=== PATIENT | male | born 1975 | race Hispanic/Latino ===

== ENCOUNTER 2024-04-05 23:14 | Emergency (ER) | payer BC ==
[~2024-04-05] VITALS: Ht 175.3 cm; Wt 140.6 kg
[2024-04-05 23:36] LABS: GLUCOSE POC COMMENT Notified Nurse
[2024-04-05 23:49] LABS: CREATININE 0.9 mg/dL (0.5-1.3); POTASSIUM 3.8 mmol/L (3.5-5.1)
[2024-04-06 00:02] LABS: BASOPHILS # (AUTO) 0.04 K/uL (0.00-0.20); BASOPHILS % (AUTO) 0.4 % (0.0-5.0); EOSINOPHILS # (AUTO) 0.28 K/uL (0.00-0.70); EOSINOPHILS % (AUTO) 2.8 % (0.0-8.0); HEMATOCRIT 40.6 % (42-54); IMMATURE GRANULOCYTE ABSOLUTE 0.04 K/uL (0-1); LYMPHOCYTES # (AUTO) 3.4 K/uL (1.0-4.8); LYMPHOCYTES % (AUTO) 33.9 % (21.0-51.0); MEAN CORPUSCULAR HEMOGLOBIN 28.8 pg (27.0-33.0); MEAN CORPUSCULAR HGB CONC 33.5 g/dL (32.0-36.0); MEAN CORPUSCULAR VOLUME 85.8 fL (79-99); MONOCYTES # (AUTO) 0.6 K/uL (0.1-1.0); MONOCYTES % (AUTO) 5.8 % (3.0-13.0); NEUTROPHILS # (AUTO) 5.7 K/uL (1.8-7.7); NEUTROPHILS % (AUTO) 56.7 % (40.0-77.0); PLATELET COUNT (AUTO) 182 K/uL (130-400); RED BLOOD CELL COUNT(AUTO) 4.73 MIL/uL (4.50-6.20); RED CELL DISTRIBUTION WIDTH 13.3 % (11.0-15.5)
[2024-04-06 00:08] LABS: B-TYPE NATRIURETIC PEPTIDE 13 pg/mL (0-100)
[2024-04-06] MEDS: mecliZINE HCL 25 MG TABLET PO ONE (00:08)
[2024-04-06] MEDS: NITROGLYCERIN 1GM OINT 1 INCH/1GM TD ONE (00:09)
[2024-04-06] MEDS: 0.9%NACL 1000ML 1,000 ML IV ONE (00:47)
[2024-04-06] MEDS: ASPIRIN 325MG TAB PO ONE (00:47)
[2024-04-06 00:52] LABS: APPEARANCE,URINE CLEAR (CLEAR); BILIRUBIN,URINE NEGATIVE (NEGATIVE); COLOR,URINE LIGHT-YELLOW (YELLOW); GLUCOSE, URINE (UA) 50 mg/dL (NEGATIVE); KETONES,URINE NEGATIVE (NEGATIVE); LEUKOCYTE ESTERASE ,URINE NEGATIVE Leu/uL (NEGATIVE); NITRATE,URINE NEGATIVE (NEGATIVE); OCCULT BLOOD,URINE NEGATIVE (NEGATIVE); PROTEIN,URINE NEGATIVE (NEGATIVE); UROBILINOGEN,URINE 0.2 mg/dL (0.2-1.0)
[2024-04-06 00:58] LABS: ADD UA MICROSCOPIC YES
[2024-04-06 00:59] LABS: AMPHET/METH SCREEN,URINE NEGATIVE (NEGATIVE); BARBITURATE SCREEN, URINE NEGATIVE (NEGATIVE); BENZODIAZEPINES SCREEN,URINE NEGATIVE (NEGATIVE); CANNABINOID SCREEN,URINE NEGATIVE (NEGATIVE); COCAINE SCREEN,URINE NEGATIVE (NEGATIVE); OPIATE SCREEN,URINE NEGATIVE (NEGATIVE); PHENCYCLIDINE SCREEN,URINE NEGATIVE (NEGATIVE)
[2024-04-06 01:00] LABS: MUCUS,URINE RARE LPF (None Seen); RBC,URINE 0-1 /HPF (0-1); SQUAMOUS EPITHELIAL CELL,UR RARE /HPF (0-2); WBC,URINE 0-1 /HPF (0-1)
[2024-04-06] MEDS ORDERED: MECL-302 PO (02:03)
[2024-04-06 02:34] VITALS: BP 128/78; PULSE 75; RESP 18; TEMP 98.3; O2SAT 98
== END 2024-04-06 02:35 | disposition home or self-care (01) ==
LOC: EDH 23:14
DX: R07.89 Other chest pain (principal); R42 Dizziness and giddiness; D64.9 Anemia, unspecified; E11.65 Type 2 diabetes mellitus with hyperglycemia; E78.00 Pure hypercholesterolemia, unspecified; E87.1 Hypo-osmolality and hyponatremia; E87.8 Other disorders of electrolyte and fluid balance, not elsewhere classified; I10 Essential (primary) hypertension
CPT/HCPCS: 99284; 70450; 71045; 82550; 84484 ×3; 80048; 83880; 80305; 85025; 82948; 36415 ×2; 93005; 81001; J7030

== ENCOUNTER → 2024-04-15 | Outpatient (CLI) | payer BC ==
[~2024-04-15] MED LIST: MECL-302 PO
--- NOTE | 2024-04-15 18:38 | HMCSR ---
APPROVED REPORT Height: 5 ft 9in Weight: 305 lbs TEST INDICATIONS CHEST PAIN UNSPECIFIED RESTING DATA: The resting ekg shows: NSR STRESS DETAILS Reason for Termination: Reached target heart rate Stress Symptoms: SHORTNESS OF BREATH Max HR Achieved: 152 bpm % of APMHR Achieved: 104 Max Blood Pressure: 173/90 mmHg Exercise duration: 7 min Highest Stage Achieved: Stage 3: 3.4 mph at 14% grade. Stress ECG: NSR ST Change: Yes. Maximum ST Depression: 1 mm Angina Score during exercise: Exercise -Limiting Recovery ST Change: Yes - Horizontal ST depression Recovery Maximum ST Deviation: 0.5 mm Overall Exercise Capacity: Average
== END | disposition home or self-care (01) ==
LOC: RAH 07:40
PROVIDERS: ATTEND Internal Medicine
DX: R07.9 Chest pain, unspecified (principal)
CPT/HCPCS: 93017

== ENCOUNTER 2024-04-28 10:09 | Observation (INO) | payer BC ==
[~2024-04-28] VITALS: Ht 175.3 cm; Wt 60.8 kg
[2024-04-28 10:54] LABS: HEMATOCRIT 45.2 % (42-54); MEAN CORPUSCULAR HEMOGLOBIN 28.7 pg (27.0-33.0); MEAN CORPUSCULAR HGB CONC 32.7 g/dL (32.0-36.0); MEAN CORPUSCULAR VOLUME 87.6 fL (79-99); RED BLOOD CELL COUNT(AUTO) 5.16 MIL/uL (4.50-6.20); RED CELL DISTRIBUTION WIDTH 12.9 % (11.0-15.5); WHITE BLOOD COUNT (AUTO) 8.4 K/uL (4.8-10.8)
[2024-04-28 11:05] LABS: CREATININE 0.8 mg/dL (0.5-1.3); POTASSIUM 4.5 mmol/L (3.5-5.1)
[2024-04-28 11:09] LABS: BILIRUBIN,DIRECT 0.1 mg/dL (0.0-0.3); BILIRUBIN,TOTAL 0.5 mg/dL (0.2-1.0); TOTAL PROTEIN, SERUM 7.4 g/dL (6.0-8.3)
[2024-04-28] MEDS ORDERED: PHARMACY COMMUNICATION MISC SCH (11:30)
[2024-04-28] MEDS ORDERED: SIMV10TA97 PO (11:43)
[2024-04-28] MEDS ORDERED: VALS40TA11 PO (11:43)
[2024-04-28] MEDS ORDERED: HYDR12.54 PO (11:43)
[2024-04-28] MEDS ORDERED: AEC81 PO (11:43)
[2024-04-28] MEDS ORDERED: DULA1.5P SQ (11:43)
--- NOTE | 2024-04-28 11:45 | NUR ---
MED REC DONE AT THIS TIME.
[2024-04-28] MEDS: ENOXAPARIN SODIUM 100 MG/1 ML SQ SCH (12:10)
[2024-04-28] MEDS: ENOXAPARIN SODIUM 30 MG/0.3 ML SQ SCH (12:11)
--- NOTE | 2024-04-28 14:36 | NUR ---
PATIENT AT [facility] AT THIS TIME.
[2024-04-28] MEDS: REGADENOSON 0.4 MG/5 ML PF SYG IVP SCH (15:27)
--- NOTE | 2024-04-28 16:43 | NUR ---
PATIENT BACK FROM STRESS TEST AT THIS TIME.
--- NOTE | 2024-04-28 17:14 | NUR ---
ENDORSED CARE TO [facility] RN AT THIS TIME.
--- NOTE | 2024-04-28 18:22 | HMCSR ---
APPROVED REPORT TEST INDICATIONS Chest Pain, ABN TREASMILL STRESS TEST The imaging protocol used to acquire images was Rest Tc-99m/stress Tc-99m 1 day Consent: The procedure was explained and understood by the patient. Informerd consent was witnessed OLGA Banda First, low dose rest was performed then high dose stress. RESTING DATA: The resting ekg shows: NSR Rest SPECT myocardial perfusion imaging was performed in supine position minutes following the intra venous injection of 12 mCi of Tc-99 Sestamibi. Time of rest injection: 1330 Date: 04/28/2024 PHARMACOLOGIC STRESS: Pharmacologic stress test was performed by injecting regadenoson 0.4 mg IV push followed by the intra venous injection of 28 mCi of Tc-99 Sestamibi. Time of stress injection: 1521 Date: 04/28/2024 Heart Rate at time of stress injection: 77 bpm. The images were gated to evaluate regional wall motion and calculate left ventricular ejection fracti on. STRESS DETAILS Reason for Termination: Infusion complete Stress Symptoms: Dyspnea, [place] Max HR Achieved: 103 bpm % of APMHR Achieved: 70 Max Blood Pressure: 153/69 mmHg Stress ECG: NSR Study quality was good. Lung uptake was Normal. Artifact: increased GI uptake LEFT VENTRICLE Size: The left ventricular size is mildly dilated. Systolic Function:The left ventricular systolic function is normal. Wall Motion: No regional wall motion abnormalities noted. The left ventricular ejection fraction was calculated to be 53%.TID = 1.18. LV PERFUSION The stress images show normal perfusion. IMPRESSION Normal pharmacologic nuclear stress test. Global LV Function: Normal Stress ECG Summary: Normal LV Perfusion Summary: Normal Conclusion Normal pharmacologic nuclear stress test. Global LV Function: Normal Stress ECG Summary: Normal LV Perfusion Summary: Normal Transient ischemic dilatation ratio present which may be indicative of left main or multivessel disea se Clinical correlation recommended
[2024-04-28] MEDS ORDERED: METF-444 PO (22:56)
[2024-04-28] MEDS ORDERED: AUD NEB (22:56)
[2024-04-28] MEDS ORDERED: VALS80TA30 PO (22:56)
[2024-04-28] MEDS ORDERED: ALBU18HF7 IH (22:59)
[2024-04-28] MEDS ORDERED: ondanSETRON 4MG INJ IVP PRN (23:00)
[2024-04-28] MEDS ORDERED: ZOLPidem TARTrate 5 MG TAB PO PRN (23:00)
[2024-04-28] MEDS ORDERED: acetaMINOPHEN 325 MG TAB PO PRN (23:00)
[2024-04-28] MEDS ORDERED: NITROGLYCERIN 0.4 MG SL TAB SL PRN (23:00)
[2024-04-28 23:36] VITALS: BP 119/66; PULSE 70; RESP 19; TEMP 97.9
--- NOTE | 2024-04-28 23:38 | HP ---
HISTORY OF PRESENT ILLNESS: The patient is a direct admission from my office. He came complaining of mid sternal chest discomfort, pressure type radiated towards his left upper extremity that lasted for few hours started while at home address at 5 o'clock in the morning and lasted until 9 o'clock when he was seen in my office. The patient denies any palpitations, dizziness. No shortness of breath. The patient has had a recent treadmill stress test was reported abnormal. REVIEW OF SYSTEMS: Having no fever, chills, seizures, or loss of consciousness. No cough, wheeze, or rhonchi. No nausea, vomiting, or diarrhea. No dysuria, urgency, or frequency. No rashes, petechiae, or ecchymoses. No hallucinations, delusions. No suicidal ideation. PAST MEDICAL HISTORY: Type 2 diabetes, hypertension, dyslipidemia, COPD, sleep apnea, morbid obesity, BMI of 45. Abnormal treadmill stress test. PHYSICAL EXAMINATION: GENERAL: Currently, awake, alert, oriented in person, time and place. VITAL SIGNS: Blood pressure 130/76, pulse 78, and respiratory rate 16. HEENT: Normocephalic, atraumatic. LUNGS: Clear to auscultation. HEART: S1, S2 are distant. ABDOMEN: Soft, nontender, no masses. EXTREMITIES: No clubbing, cyanosis, no edema. LABORATORY DATA: Treadmill stress test report shows exercise duration of [address] changes , maximum ST depression [address] changes, horizontal ST depressions. This is from 04/15/2024. Today's EKG shows normal sinus rhythm, 73 per minute, no acute ST-T changes. ASSESSMENT AND PLAN: * Chest pain. The patient with an abnormal treadmill stress test and significant cardiovascular risk factors including type 2 diabetes, hypertension, dyslipidemia, morbid obesity will be admitted, started him on a standard treatment for acute coronary syndrome -- scheduled for a Lexiscan stress test. Reassess with results. * Type 2 diabetes, hypertension, and dyslipidemia. Continue home medications including hydrochlorothiazide, valsartan, simvastatin, metformin, and Trulicity. * Asthma/chronic obstructive pulmonary disease. Continue with albuterol inhaler. Reassess in a.m. with results of tests. DOS:04/28/2024 TID: [id number] RECEIPT: [id number] MTDD
[2024-04-29] VITALS (7 sets, daily range): BP systolic 118–147; BP diastolic 79–93; PULSE 64–84; RESP 16–20; TEMP 97.6–98.5; O2SAT 96–98
[2024-04-29 02:02] LABS: CREATININE 0.8 mg/dL (0.5-1.3); POTASSIUM 4.3 mmol/L (3.5-5.1)
[2024-04-29 08:02] LABS: HEMATOCRIT 42.5 % (42-54); MEAN CORPUSCULAR HEMOGLOBIN 28.8 pg (27.0-33.0); MEAN CORPUSCULAR HGB CONC 33.2 g/dL (32.0-36.0); MEAN CORPUSCULAR VOLUME 86.7 fL (79-99); RED BLOOD CELL COUNT(AUTO) 4.9 MIL/uL (4.50-6.20); RED CELL DISTRIBUTION WIDTH 13.1 % (11.0-15.5); WHITE BLOOD COUNT (AUTO) 10.6 K/uL (4.8-10.8)
[2024-04-29 08:28] LABS: ALANINE AMINOTRANSFERASE 33 U/L (12-78); ALBUMIN 3.6 g/dL (3.5-5.0); ASPARTATE AMINOTRANSFERASE 44 U/L (10-37); BILIRUBIN,DIRECT < 0.1 mg/dL (0.0-0.3); BILIRUBIN,TOTAL 0.6 mg/dL (0.2-1.0)
--- NOTE | 2024-04-29 08:34 | NUR ---
CARDIOLOGY: DR STANFORD CALLED-NO ANSWER
--- NOTE | 2024-04-29 08:39 | NUR ---
CARDIOLOGY CONSULT: PATIENT REPORT GIVEN TO DR STANFORD
[2024-04-29] MEDS: cloPIDOgrel 75MG TAB PO SCH (08:48)
[2024-04-29] MEDS: ASPIRIN 81MG CHEW TAB PO SCH (08:48)
[2024-04-29] MEDS: FAMOTIDINE 20MG TAB PO SCH (08:48)
--- NOTE | 2024-04-29 14:45 | NUR ---
Dr Evans notified pt in room 231
[2024-04-29] MEDS ORDERED: VALS40TA11 PO (17:36)
[2024-04-29] MEDS ORDERED: ALBUTEROL INHALER 90MCG/INH IH PRN (18:00)
--- NOTE | 2024-04-29 19:23 | CONS ---
CONSULT NOTE: CARDIOLOGY Reason for consult: Chest pain HPI/story at presentation: This is a pleasant 48-year-old male with past medical history as below presented for further evaluation management of abnormal stress test and ongoing issues with chest discomfort, radiating to left arm. No active issues of chest pain at this time, troponins negative. Cardiology is consulted for further evaluation and management. Subjective: 04/29/2024 no complaints Past medical history: See below Allergies, Meds See chart Review of systems Review of Systems Constitutional: Negative for chills and fever. HENT: Negative for ear discharge and ear pain. Eyes: Negative for photophobia and discharge. Respiratory: Negative for cough, sputum production and stridor. Cardiovascular: Negative for chest pain and palpitations. Gastrointestinal: Negative for diarrhea and vomiting. Genitourinary: Negative for frequency. Musculoskeletal: Negative for myalgias. Skin: Negative for rash. Neurological: Negative for focal weakness and seizures. Endo/Heme/Allergies: Negative for polydipsia. Psychiatric/Behavioral: Negative for hallucinations. Vitals see chart PHYSICAL EXAMINATION GENERAL: The patient is alert and oriented*3 HEENT: Nonicteric sclerae, non traumatic HEART: Regular rate and rhythm with no murmurs LUNGS: Clear to auscultation bilaterally ABDOMEN: No acute issues, non tender GENITAL, RECTAL: deferred SKIN: No rash NEUROLOGIC: NFND EXTREMITIES: No edema ASSESSMENT ATYPICAL CHEST PAIN With evidence of abnormal stress test with TID DIABETES HYPERTENSION DYSLIPIDEMIA, SLEEP APNEA, MORBID OBESITY CORE MEASURES On aspirin Plavix statin, 04/2024 OTHER MEDICAL PROBLEMS COPD, asthma PLAN 04/29/2024 patient with atypical symptoms, multiple risk factors presenting with abnormal stress test and chest discomfort. This benefits of cardiac catheterization discussed and patient wants to proceed. Multiple questions answered. N.p.o. at midnight for possible angiogram tomorrow. ATTESTATION I was involved substantially in the care of this patient Number and complexity of problems addressed: 1 acute illnesses with systemic features Amount and or complexity of data Review of prior external note(s) from each unique source: 2+ Ordering of each unique test : 0 Review of the result(s) of each unique test: 2+ Assessment requiring an independent historian(s): No Independent interpretation of test performed by another MD/QHCP/appropriate source (not separately reported) : No Discussion of management or test interpretation with external MD/QHCP/appropriate source (not separately reported) : No Risk status (cardiac, billing related): Moderate TYLER HOLDEN MD Apr 29, 2024 19:23
[2024-04-29] MEDS ORDERED: 0.9% NACL 500ML IV.SOLN 500 ML IV SCH (19:30)
[2024-04-29 19:41] LABS: HEMATOCRIT 43.1 % (42-54); MEAN CORPUSCULAR HEMOGLOBIN 28.6 pg (27.0-33.0); MEAN CORPUSCULAR HGB CONC 34.1 g/dL (32.0-36.0); MEAN CORPUSCULAR VOLUME 83.9 fL (79-99); RED BLOOD CELL COUNT(AUTO) 5.14 MIL/uL (4.50-6.20); RED CELL DISTRIBUTION WIDTH 12.8 % (11.0-15.5)
[2024-04-29 19:50] LABS: CREATININE 0.9 mg/dL (0.5-1.3); POTASSIUM 3.3 mmol/L (3.5-5.1)
[2024-04-29] MEDS: simVASTatin 10 MG TABLET PO SCH (20:24)
[2024-04-30] VITALS (8 sets, daily range): BP systolic 111–145; BP diastolic 62–97; PULSE 64–79; RESP 17–20; TEMP 97.7–98.6; O2SAT 98
--- NOTE | 2024-04-30 04:03 | PN ---
SUBJECTIVE: The patient was admitted for assessment and treatment of chest pain. History of recent abnormal treadmill stress test. He was started on standard treatment for acute coronary syndrome. He had a stress test done that was reported as abnormal. He is currently comfortable and afebrile. No chest pain or palpitations. No nausea, vomiting. OBJECTIVE: GENERAL: Currently, awake, alert, oriented in person, time, and place, not in distress. VITAL SIGNS: Blood pressure 127/96, pulse 74, respiratory rate 14. HEENT: Normocephalic and atraumatic. LUNGS: Clear to auscultation. HEART: S1, S2 are distant. ABDOMEN: Soft and nontender. EXTREMITIES: No clubbing, cyanosis. DIAGNOSTIC DATA; Lexiscan stress test report shows transient ischemic dilatation ratio present, which may indicative of left main or multivessel disease. TID equals 1.18. Global LV function normal. Stress EKG summary normal. Normal pharmacological nuclear stress. LABORATORY DATA: WBC count 10.6, hemoglobin 14.1, platelets 201. Sodium 137, potassium 4.3, creatinine 0.8, glucose 113. Troponin levels were less than 0.05. ASSESSMENT AND PLAN: * Chest pain with abnormal treadmill stress test with 1 mm depression reported and Lexiscan stress test compatible with left main or multivessel disease in a patient with typical symptoms at rest, high risk with type 2 diabetes, hypertension, dyslipidemia, and obesity. Cardiology consultation requested. * Hypertension. Continue home medications. * Dyslipidemia. Continue with simvastatin. * Chronic obstructive pulmonary disease. Continue current treatment. Follow up in a.m. with results. DOS: 04/29/2024 TID: [id number] RECEIPT: [id number] [facility]
[2024-04-30 08:15] LABS: BASOPHILS # (AUTO) 0.05 K/uL (0.00-0.20); BASOPHILS % (AUTO) 0.7 % (0.0-5.0); EOSINOPHILS # (AUTO) 0.13 K/uL (0.00-0.70); EOSINOPHILS % (AUTO) 1.8 % (0.0-8.0); HEMATOCRIT 44.1 % (42-54); IMMATURE GRANULOCYTE ABSOLUTE 0.02 K/uL (0-1); LYMPHOCYTES # (AUTO) 1.7 K/uL (1.0-4.8); LYMPHOCYTES % (AUTO) 23.1 % (21.0-51.0); MEAN CORPUSCULAR HEMOGLOBIN 28.8 pg (27.0-33.0); MEAN CORPUSCULAR HGB CONC 32.9 g/dL (32.0-36.0); MEAN CORPUSCULAR VOLUME 87.5 fL (79-99); MONOCYTES # (AUTO) 0.5 K/uL (0.1-1.0); MONOCYTES % (AUTO) 6.9 % (3.0-13.0); NEUTROPHILS # (AUTO) 4.9 K/uL (1.8-7.7); NEUTROPHILS % (AUTO) 67.2 % (40.0-77.0); PLATELET COUNT (AUTO) 191 K/uL (130-400); RED BLOOD CELL COUNT(AUTO) 5.04 MIL/uL (4.50-6.20); RED CELL DISTRIBUTION WIDTH 12.8 % (11.0-15.5); WHITE BLOOD COUNT (AUTO) 7.4 K/uL (4.8-10.8)
[2024-04-30 08:25] LABS: INR 1.01 (0.85-1.15); PROTHROMBIN TIME 10.9 SEC (9.6-11.6)
[2024-04-30 08:26] LABS: PARTIAL THROMBOPLASTIN TIME 30.6 SEC (26.3-35.5)
[2024-04-30 08:27] LABS: ALBUMIN 3.6 g/dL (3.5-5.0); BILIRUBIN,TOTAL 0.6 mg/dL (0.2-1.0); CREATININE 0.9 mg/dL (0.5-1.3); POTASSIUM 3.9 mmol/L (3.5-5.1); TOTAL PROTEIN, SERUM 6.9 g/dL (6.0-8.3)
[2024-04-30] MEDS ORDERED: LIDOCAINE HCL 400MG/20ML VIAL ONE (10:05)
[2024-04-30] MEDS ORDERED: niCARDIpine 25MG INJ IV ONE (10:05)
[2024-04-30] MEDS ORDERED: IOHEXOL 350 MG/ML 100ML INFUS..BTL IV ONE (10:05)
[2024-04-30] MEDS ORDERED: HEParin-NS 1,000 UNIT/500 ML 1,000 ML IV ONE (10:06)
[2024-04-30] MEDS ORDERED: NITROGLYCERIN 50MG VIAL ONE (10:06)
[2024-04-30] MEDS ORDERED: MIDAZOLAM HCL 1 MG/ML 2ML VIAL ONE (10:23)
[2024-04-30] MEDS ORDERED: FENTanyl CITRate PF 50 MCG/1 ML 2ML VIAL ONE (10:23)
[2024-04-30] MEDS ORDERED: HEParin 10,000 UNIT/10ML (1,000 UNIT/ML) VIAL ONE (10:40)
--- NOTE | 2024-04-30 10:49 | OP ---
Operative Note: PROCEDURES PERFORMED: 1. Left heart catheterization. 2. Selective coronary angiography. 3. Moderate sedation INDICATION FOR PROCEDURE: DESCRIPTION OF PROCEDURE: The patient was brought to the cardiac catheterizati on lab in fasting state, informed consent was obtained and the patient was prepped and draped in sterile fashion. Mild sedation was administered via versed and fentanyl. I was present during administration of sedation. The right wrist/radial artery region was then anesthetized via 2 mL of 2% lidocaine and the right radial artery was accessed via double wall puncture technique and a 6-Portuguese Radial arterial sheath was advanced over a guidewire using modified Seldinger technique.Next, a 5-Portuguese TIG catheter were advanced over the guidewire to the level of the ascending aorta. The catheter(s) was used to selectively engage the left main coronary artery and RCA. The right coronary artery and LM and its branches were then imaged in multiple planes and views. At the conclusion of the procedure, the patient had the Radial arterial sheath removed in the cardiac catheterization lab with hemostasis obtained via manual hand Band application devise and the patient was transferred to the [facility] observation area. Blood loss was minimal. Moderate sedation: Moderate sedation was used during the procedure, moderate sedation was started at 1030 and completed at 1045 . Patient tolerated the procedure well.Continuous hemodynamic and physiological monitoring was present throughout the procedure. ASA and Mallampatti were assessed prior to the procedure as well. SELECTIVE CORONARY ANGIOGRAPHY: 1. Left main: The left main bifurcates into the left anterior descending and circumflex coronary artery. NO significant disease. 2. Left anterior descending: The left anterior descending coronary artery gives rise to diagonal(s) and terminates as the apical recurrent branch. NO significant disease. 3. Circumflex: The circumflex coronary artery is noted to provide obtuse marginal(s). NO significant disease. 4. Right coronary artery: The right coronary artery is dominant and gives PDA and GODFREY. No significant disease. 5. Left ventricular end-diastolic pressure is elevated. There was no gradient noted upon pullback. Impression Normal coronaries PLAN: Aggressive risk factors modification Maximize medical therapy TYLER HOLDEN MD Apr 30, 2024 10:49
--- NOTE | 2024-04-30 10:52 | PN ---
CONSULT NOTE: CARDIOLOGY Reason for consult: Chest pain HPI/story at presentation: This is a pleasant 48-year-old male with past medical history as below presented for further evaluation management of abnormal stress test and ongoing issues with chest discomfort, radiating to left arm. No active issues of chest pain at this time, troponins negative. Cardiology is consulted for further evaluation and management. Subjective: 04/29/2024 no complaints 04/30/2024 no complaints Past medical history: See below Allergies, Meds See chart Review of systems Review of Systems Constitutional: Negative for chills and fever. HENT: Negative for ear discharge and ear pain. Eyes: Negative for photophobia and discharge. Respiratory: Negative for cough, sputum production and stridor. Cardiovascular: Negative for chest pain and palpitations. Gastrointestinal: Negative for diarrhea and vomiting. Genitourinary: Negative for frequency. Musculoskeletal: Negative for myalgias. Skin: Negative for rash. Neurological: Negative for focal weakness and seizures. Endo/Heme/Allergies: Negative for polydipsia. Psychiatric/Behavioral: Negative for hallucinations. Vitals see chart PHYSICAL EXAMINATION GENERAL: The patient is alert and oriented*3 HEENT: Nonicteric sclerae, non traumatic HEART: Regular rate and rhythm with no murmurs LUNGS: Clear to auscultation bilaterally ABDOMEN: No acute issues, non tender GENITAL, RECTAL: deferred SKIN: No rash NEUROLOGIC: NFND EXTREMITIES: No edema ASSESSMENT ATYPICAL CHEST PAIN With evidence of abnormal stress test with TID DIABETES HYPERTENSION DYSLIPIDEMIA, SLEEP APNEA, MORBID OBESITY CORE MEASURES On aspirin Plavix statin, 04/2024 OTHER MEDICAL PROBLEMS COPD, asthma PLAN 04/29/2024 patient with atypical symptoms, multiple risk factors presenting with abnormal stress test and chest discomfort. This benefits of cardiac catheterization discussed and patient wants to proceed. Multiple questions answered. N.p.o. at midnight for possible angiogram tomorrow. 04/29/2024 cardiac catheterization completed today was negative without any significant CAD. Can be discharged home from a cardiac standpoint when okay with primary team. ATTESTATION I was involved substantially in the care of this patient Number and complexity of problems addressed: 1 acute illnesses with systemic features Amount and or complexity of data Review of prior external note(s) from each unique source: 2 Ordering of each unique test : 0 Review of the result(s) of each unique test: 2 Assessment requiring an independent historian(s): No Independent interpretation of test performed by another MD/MANSOORP/appropriate source (not separately reported) : No Discussion of management or test interpretation with external MD/QDUCP/appropriate source (not separately reported) : No Risk status (cardiac, billing related): Moderate Vitals/Labs Vital Signs Date Time Temp Pulse Resp B/P (MAP) Pulse Ox O2 Delivery O2 Flow Rate FiO2 04/30/24 07:36 98.2 76 20 144/97 95 Room Air 04/29/24 20:00 0 21 Laboratory Tests 04/29/24 19:35 04/30/24 07:51 Medications Current Medications Aspirin 81 mg DAILY PO Last administered on 04/29/24at 08:48; Start 04/29/24 at 09:00; Stop 05/29/24 at 08:59 Clopidogrel Bisulfate 75 mg DAILY PO Last administered on 04/29/24at 08:48; Start 04/29/24 at 09:00; Stop 05/29/24 at 08:59 Pharmacy Profile Note 1 each ONCE MISC; Start 04/28/24 at 11:30; Stop 04/28/24 at 11:26; Status DC Enoxaparin Sodium 100 mg Q12H SQ Last administered on 04/29/24at 11:20; Start 04/28/24 at 12:00; Stop 05/28/24 at 11:59 Enoxaparin Sodium 30 mg Q12H SQ Last administered on 04/29/24at 11:20; Start 04/28/24 at 12:00; Stop 05/28/24 at 11:59 Regadenoson 0.4 mg ONCE IVP Last administered on 04/28/24at 15:27; Start 04/28/24 at 14:30; Stop 04/29/24 at 14:29; Status DC Famotidine 20 mg BID PO Last administered on 04/29/24at 20:24; Start 04/29/24 at 09:00; Stop 05/29/24 at 08:59 Acetaminophen 650 mg Q6H PRN PO; Start 04/28/24 at 23:00; Stop 05/28/24 at 22:59 Ondansetron HCl 4 mg Q6H PRN IVP; Start 04/28/24 at 23:00; Stop 05/28/24 at 22:59 Zolpidem Tartrate 5 mg HS PRN PO; Start 04/28/24 at 23:00; Stop 05/28/24 at 22:59 Nitroglycerin 0.4 mg AD PRN SL; Start 04/28/24 at 23:00; Stop 05/28/24 at 22:59 Simvastatin 10 mg HS PO Last administered on 04/29/24at 20:24; Start 04/29/24 at 21:00; Stop 05/29/24 at 20:59 Albuterol Sulfate Q4H PRN IH; Start 04/29/24 at 18:00; Stop 05/29/24 at 17:59 Hydrochlorothiazide 12.5 mg DAILY PO; Start 04/30/24 at 09:00; Stop 05/30/24 at 08:59 Sodium Chloride 500 ml @ 0 mls/hr Q0M IV; Start 04/29/24 at 19:30; Stop 05/29/24 at 19:29 Lidocaine HCl 20 ml STK-MED ONCE .ROUTE; Start 04/30/24 at 10:05; Stop 04/30/24 at 10:05; Status DC Iohexol 35,000 mg STK-MED ONCE IV; Start 04/30/24 at 10:05; Stop 04/30/24 at 10:05; Status DC Nicardipine HCl 25 mg STK-MED ONCE IV; Start 04/30/24 at 10:05; Stop 04/30/24 at 10:06; Status DC Heparin Sodium/ Sodium Chloride 1,000 ml @ As Directed STK-MED ONCE IV; Start 04/30/24 at 10:06; Stop 04/30/24 at 10:06; Status DC Nitroglycerin 50 mg STK-MED ONCE .ROUTE; Start 04/30/24 at 10:06; Stop 04/30/24 at 10:06; Status DC Fentanyl Citrate 100 mcg STK-MED ONCE .ROUTE; Start 04/30/24 at 10:23; Stop 04/30/24 at 10:23; Status DC Midazolam HCl 2 mg STK-MED ONCE .ROUTE; Start 04/30/24 at 10:23; Stop 04/30/24 at 10:23; Status DC Heparin Sodium (Porcine) 10,000 unit STK-MED ONCE .ROUTE; Start 04/30/24 at 10:40; Stop 04/30/24 at 10:42; Status DC SIVAGNANAM,KAMESH MD Apr 30, 2024 10:52
--- NOTE | 2024-04-30 10:55 | HMCSR ---
APPROVED REPORT EXAM: Two-dimensional and M-mode echocardiogram with Doppler and color Doppler. Study Details: Hx: obesity, DM, HTN, dyslipidemia INDICATION ICD: Chest Pain 2D Dimensions RVDd4.1 cmLVEF(%)28.9 (>50%)LVED Vol(simp.)125.0 mL IVSd0.7 (0.7-1.1cm)FS(%)14 %LVES Vol(simp.)60.6 mL LVDd5.2 (3.8-5.6cm)LA (2D)4.1 (1.6-4.0cm)LVEF(%, simp.)52 % PWd1.2 (0.7-1.1cm)Ao Root(2D)4.0 (2.0-3.7cm)LA ESV INDEX (4CH)32.90 mL/m2 IVSs1.1 cmLVOT diam2.4 (1.8-2.4cm)LA ESV INDEX (2CH)39.90 mL/m2 LVDs4.5 (2.5-4.0cm)LA ESV INDEX (BP)40.00 mL/m2 PWs1.4 cm Deformation Strain Apical 414.0 % Apical 213.0 % Apical 313.0 % Global Uavazh95.0 % M-Mode Dimensions EPSS0.8 cm LA (MM)4.6 (1.6-4.0cm) Ao Root(MM)3.7 (2.0-3.7cm) Aortic Valve AoV VTI0.3 mAo Mean GR4.0 mmHgLVOT VTI0.16 m IVNA (VMAX)2.9 cm2AVA (VTI) 2.9 cm2 Mitral Valve MV E Vmax65.0 cm/sDECEL Qrda080 ms MV A Vmax43.2 cm/sP 1/2 T74 ms E/A ratio1.5MVA (PHT)3.0 cm2 MR Max PG11 mmHg TDI E/E' Eteqhn85.4E/E' Lateral6.5 Medial E' Peak V4.50 cm/sLateral E' Peak V10.00 cm/s Pulmonary Valve PV Vmax1.1 m/s PV Peak GR5.2 mmHg Tricuspid Valve RAP (EST) 8 mmHgRVSP8.0 mmHg Left Ventricle Left ventricular cavity size is normal. Reduced GLS -13.0%. Normal wall motion There is normal left v entricular wall thickness. LVEF is low normal 55-60%. Normal diastolic function Right Ventricle The right ventricle is normal size. Right ventricular systolic function is borderline reduced. Atria The left atrium is mildly dilated. The right atrium size is normal. Aortic Valve The aortic valve is normal in structure and function. No aortic regurgitation is present. There is no aortic valvular stenosis. Mitral Valve The mitral valve is normal in structure and function. There is trace mitral valve regurgitation noted . There is no mitral valve stenosis. Tricuspid Valve The tricuspid valve is normal in structure and function. There is no tricuspid valve regurgitation no neptali. Pulmonic Valve The pulmonary valve is normal in structure and function. There is no pulmonic valvular regurgitation. Great Vessels The aortic root is normal in size. IVC is not well visualized. Pericardium No pericardial effusion. Other Information Quality : Technically difficult due to body habitus Conclusion LVEF is low normal 55-60%. Normal diastolic function There is normal left ventricular wall thickness. Left ventricular cavity size is normal. Reduced GLS -13.0%. Normal wall motion The left atrium is mildly dilated. No pericardial effusion. No pulmonary hypertension Study quality was adequate
[2024-04-30] MEDS: hydroCHLOROthiazide 25 MG TABLET PO SCH (14:14)
--- NOTE | 2024-04-30 17:24 | PN ---
SUBJECTIVE: The patient is scheduled for cardiac catheterization today. Comfortable, afebrile. No fever or chills. No chest pain, no nausea or vomiting. OBJECTIVE: GENERAL: Currently awake, alert, oriented in person, time, and place, not in distress. VITAL SIGNS: In the chart. HEENT: Normocephalic, atraumatic. LUNGS: Clear to auscultation. HEART: S1, S2 are distant. ABDOMEN: Soft, nontender. EXTREMITIES: No clubbing, cyanosis. LABORATORY DATA: WBC count 7.4, hemoglobin 14.5, and platelets 191. Sodium 143, potassium 3.9, BUN 20, creatinine 0.9, and albumin 3.6. ASSESSMENT AND PLAN: * Acute coronary syndrome. The patient with abnormal stress test treadmill and Lexiscan with significant cardiovascular risk factors, pending cardiac catheterization. Plan to discharge when cleared by Cardiology. * Hypertension. Continue home medications. * Dyslipidemia. Continue home medications. * Chronic obstructive pulmonary disease. Continue current treatment. DOS: 04/30/2024 TID: [id number] [facility] [id number] [facility]
[2024-05-01] MEDS ORDERED: VALSARTAN PO SCH (09:00)
== END 2024-04-30 16:50 | disposition home or self-care (01) ==
LOC: EDH 10:09 → DIRECT 10:10 → 2AH 04-29 14:18
PROVIDERS: ADMIT Internal Medicine; ATTEND Internal Medicine
DX: I24.9 Acute ischemic heart disease, unspecified (principal); R07.89 Other chest pain; E11.9 Type 2 diabetes mellitus without complications; E66.01 Morbid (severe) obesity due to excess calories; E78.5 Hyperlipidemia, unspecified; G47.30 Sleep apnea, unspecified; I10 Essential (primary) hypertension; J44.9 Chronic obstructive pulmonary disease, unspecified; Z68.42 Body mass index [BMI] 45.0-49.9, adult; Z79.899 Other long term (current) drug therapy
CPT/HCPCS: 96372 ×3; 82550 ×3; 80076 ×2; 84484 ×3; 80048 ×3; 85027 ×3; 82948 ×4; 36415 ×3; 93017; 78452; 93458; 80053; 85025; 85610; 85730; 93306; 93356; G0378 ×47; G0379; J1650 ×7; J2785; A9500 ×2; C1887; C1769 ×2; C1894; A4649; Q9965; J3010; J3490 ×3; J1644 ×2; J2250; Q9967; 99156

== ENCOUNTER 2024-06-03 12:05 | Emergency (ER) | payer BC ==
[~2024-06-03] VITALS: Ht 175.3 cm; Wt 136.1 kg
[~2024-06-03 12:05] MED LIST changes: +ALBU18HF7 IH; +DULA1.5P SQ; +HYDR12.54 PO; -MECL-302 PO; +SIMV10TA97 PO; +VALS40TA11 PO
[2024-06-03] MEDS: dexaMETHasone SOD PHOSPHATE 4 MG/ML 1ML VIAL IM ONE (12:57)
--- NOTE | 2024-06-03 12:57 | ERN ---
General Chief Complaint: Earache Stated Complaint: EAR AND THROAT PAIN,LT SIDE FACIAL PROBLEMS Time Seen by MD: 12:07 Source: patient History of Present Illness Initial Comments PATIENT IS A 48-YEAR-OLD GENTLEMAN COMING IN TO BE EVALUATED FOR RIGHT EAR DISCOMFORT. PATIENT ALSO STATES THAT HE HAS BEEN HAVING RIGHT FACE TINGLING. STATES THAT THIS STARTED YESTERDAY. ALONG WITH THIS HE STARTED HAVING SOME URI SYMPTOMS WHICH INCLUDE NASAL CONGESTION SORE THROAT AND EARACHE. Allergies: Coded Allergies: No Known Allergies (Unverified Allergy, Unknown, 04/05/24) Home Meds Reported Medications Valsartan (Valsartan) 40 Mg Tablet, 1 TAB PO DAILY for 30 Days, #30 TAB 0 Refills 04/29/24 Albuterol Sulfate (Ventolin Hfa) 90 Mcg Hfa.aer.ad, 1 PUFF IH Q4HPRN PRN for wheezing for 30 Days, #18 GM 0 Refills 04/28/24 Simvastatin (Simvastatin) 10 Mg Tablet, 1 TAB PO HS for 30 Days, #30 TAB 0 Refills 04/28/24 Dulaglutide (Trulicity) 1.5 Mg/0.5 Ml Pen.injctr, 0.5 ML SQ QWEEK for 28 Days, #2 ML 0 Refills 04/28/24 Hydrochlorothiazide (Hydrochlorothiazide) 12.5 Mg Tablet, 12.5 MG PO AM, TAB 04/28/24 Past Medical History Past Medical History: Diabetes-Type II, Hypertension Past Surgical History: None ROS Dictation CONSTITUTIONAL: NO CHILLS, NO FEVER, NO WEAKNESS, NO DIAPHORESIS, NO MALAISE. HEAD/FACE: NO SIGNS OF TRAUMA. EENT: NO EYE PAIN, NO BLURRED VISION, NO TEARING, NO DOUBLE VISION, NO EAR PAIN, NO EAR DISCHARGE, NO NOSE PAIN, NO NASAL CONGESTION, NO THROAT PAIN, NO THROAT SWELLING, NO MOUTH PAIN. RESPIRATORY: NO COUGH, NO ORTHOPNEA, NO SOB, NO STRIDOR, NO WHEEZING. CARDIOVASCULAR: NO CHEST PAIN, NO EDEMA, NO PALPITATIONS, NO SYNCOPE. GASTROINTESTINAL/ABDOMINAL: NO ABDOMINAL PAIN, NO CONSTIPATION, NO DIARRHEA, NO NAUSEA, NO VOMITING. GENITOURINARY: NO ABNORMAL DISCHARGE, NO DYSURIA, NO FREQUENT URINATION, NO HEMATURIA. NO COMPLAINTS OF PAIN IN THE GENITALS. MUSCULOSKELETAL: NO BACK PAIN, NO GOUT, NO JOINT PAIN, NO JOINT SWELLING, NO MUSCLE PAIN, NO MUSCLE STIFFNESS, NO NECK PAIN. INTEGUMENTARY: NO CHANGE IN COLOR, NO CHANGE IN HAIR/NAILS, NO DRYNESS, NO LESION, NO LUMPS, NO RASH. NEUROLOGICAL/PSYCH: NO ANXIETY, NOT DEPRESSED, NO EMOTIONAL PROBLEM, NO HEADACHE, NO NUMBNESS, NO PRE-EXISTING DEFICIT, NO HISTORY OF SEIZURES, NO TREMORS, NO WEAKNESS. HEMATOLOGIC/LYMPHATIC: NOT ANEMIC, NO HISTORY OF BLOOD CLOTS, NO APPARENT BLEEDING, NO BRUISING, GLANDS NOT SWOLLEN. ALL SYSTEMS NEGATIVE, EXCEPT NOTED. Physical Exam Physical Exam Dictation VITAL SIGNS: REVIEWED. GENERAL APPEARANCE: ALERT, ORIENTED X3, NO ACUTE DISTRESS, OBESE. HEAD AND FACE: NON-TRAUMATIC. RIGHT FACIAL WEAKNESS FOREHEAD NOT SPARING EYES: PERRL, PINK CONJUNCTIVAS, EYELID NO TRAUMA, ANTERIOR CHAMBER CLEAR. EARS: PINNAS INTACT AND NO SIGNS OF TRAUMA OR ERYTHEMA. EAR CANALS CLEAR AND NO DISCHARGE. TMS NO ERYTHEMA. NOSE: NO DISCHARGE, NO BLEEDING. OROPHARYNX: MOUTH NORMAL, TEETH NO CARIES, TONGUE PINK. PHARYNX CLEAR, NO ERYTHEMA. TONSILS NO EXUDATES, NO ABSCESSES NOTED. MUCOUS MEMBRANE MOIST. NECK: SUPPLE, NON-TENDER, NO THYROMEGALY, NO MASSES, NO JVD, NO BRUITS. BREAST: DEFERRED. CHEST: NO TENDERNESS, NO CREPITUS, NO PARADOXICAL MOVEMENT, NO RETRACTIONS. LUNGS: CLEAR, WELL-VENTILATED, SYMMETRIC, NO RALES, NO WHEEZING, NO RHONCHI, NO STRIDOR, GOOD BREATH SOUNDS BILATERALLY. HEART: REGULAR RATE, REGULAR RHYTHM, NO MURMUR, NO GALLOPS. VASCULAR: NO PERIPHERAL EDEMA. ABDOMEN: SOFT, POSITIVE BOWEL SOUNDS, NONDISTENDED, NO GUARDING, NONTENDER, NO REBOUND, NO MASSES NO HEPATOMEGALY, NO SPLENOMEGALY, NO DAVIS'S SIGN, NO HERNIAS. RECTAL: DEFERRED. GENITAL: DEFERRED. NEUROLOGICAL: NORMAL SPEECH, GROSS MOTOR FUNCTION INTACT, GROSS SENSORY FUNCTION INTACT. MUSCULOSKELETAL: NECK NONTENDER, FULL RANGE OF MOTION, BACK NONTENDER, FULL RANGE OF MOTION. EXTREMITIES: NONTENDER, FULL RANGE OF MOTION. SKIN: COLOR PINK, DRY, NO TURGOR, NO RASH, NO LACERATIONS, NO ABRASIONS, NO CONTUSIONS. LYMPHATICS: DEFERRED. Results Laboratory and Microbiology Labs Reviewed?: Yes MDM MDM: DIFFERENTIAL DIAGNOSIS: RIGHT-SIDED CHEN'S PALSY, RIGHT FACIAL NUMBNESS, RIGHT FACIAL WEAKNESS, PATIENT IS A 48-YEAR-OLD GENTLEMAN COMING IN TO BE EVALUATED FOR RIGHT FACIAL NUMBNESS AND WEAKNESS. ON PHYSICAL EXAM THERE IS NO FLOOR HIT SPARING. No other weaknesses or altered changes in neurological process. ALL CONSISTENT WITH A RIGHT-SIDED CHEN'S PALSY. PATIENT WILL BE DISCHARGED WITH ORAL STEROIDS. ED Course Orders Procedure Category Date Status Time Dexamethasone 4mg/Ml PHA 06/03/24 Complete 1ml Vial (Dexametha 12:30 Current Medications Medications (Trade) Dose Ordered Sig/Vandana Route PRN Reason Start Time Stop Time Status Last Admin Dose Admin Dexamethasone Sodium Phosphate (dexaMETHasone 4MG/ML 1ML VIAL) 4 mg ONCE ONCE IM 06/03/24 12:30 06/03/24 12:31 DC 06/03/24 12:57 Vital Signs Date Time Temp Pulse Resp B/P (MAP) Pulse Ox O2 Delivery O2 Flow Rate FiO2 06/03/24 12:23 98.8 57 20 144/95 96 Room Air 0 DX & DISP Disposition: Discharge Departure Impression: Primary Impression: Right-sided Chen's palsy Condition: Stable Scripts Carboxymethylcellulos/Glycerin (Refresh Optive Eye Drops) 0.5 %-0.9 % Drops 1 DROP OP QID for dry eyes for 30 Days, #30 ML 0 Refills Prov: TELMA ALATORRE MD 06/03/24 Prednisone (Prednisone) 10 Mg Tab.ds.pk 40 MG PO BID for 7 Days, #14 BOTTLE Prov: TELMA ALATORRE MD 06/03/24 Acyclovir (Acyclovir) 800 Mg Tablet 1 TAB PO 5XDAY for 7 Days, #35 TAB 0 Refills Prov: TELMA ALATORRE MD 06/03/24 Additional Instructions: FOLLOW-UP WITH PRIMARY CARE PROVIDER IN 1 TO 2 DAYS. TAKE MEDICATIONS DIRECTED HERE IN THE EMERGENCY ROOM. OKAY TO CONTINUE HOME MEDICATIONS UNLESS OTHERWISE DISCUSSED DURING YOUR VISIT IN THE EMERGENCY ROOM TODAY. RETURN TO YOUR NEAREST EMERGENCY ROOM IF SYMPTOMS WORSEN OR IF THERE IS NO IMPROVEMENT. CALL 911 IF YOU NEED IMMEDIATE ASSISTANCE. TAKE TYLENOL DESX-[id number] NEEDED AND IF NO CONTRAINDICATIONS ARE PRESENT. INCREASE ORAL HYDRATION. A WOUND CULTURE OR URINE CULTURE WAS ORDERED HERE IN THE EMERGENCY ROOM DEPARTMENT PLEASE FOLLOW-UP WITH PRIMARY CARE PROVIDER AND ADVISE THEM TO GET REPEAT PORTS FROM OUR FACILITY. IF YOU HAD ANY AMELIA WRAP/SPLINTS THAT WERE APPLIED HERE, PLEASE DO NOT REMOVE THEM UNTIL YOU SEE YOUR PRIMARY CARE OR SPECIALTY. Referrals: Referrals: MARVIN BARRIOS MD (PCP) Time of Disposition: 13:34 TELMA ALATORRE MD Jun 03, 2024 12:57
[2024-06-03] MEDS ORDERED: CARB15DR2 OP (13:37)
[2024-06-03] MEDS ORDERED: ACYC-138 PO (13:37)
[2024-06-03] MEDS ORDERED: PRED10TA23 PO (13:37)
[2024-06-03 13:45] VITALS: BP 140/90; PULSE 58; RESP 19; TEMP 98.3; O2SAT 99
== END 2024-06-03 13:50 | disposition home or self-care (01) ==
LOC: EDH 12:05
DX: G51.0 Bell's palsy (principal); E11.9 Type 2 diabetes mellitus without complications; I10 Essential (primary) hypertension; Z79.899 Other long term (current) drug therapy
CPT/HCPCS: 99284; 96372; J1100